=== PATIENT | female | born 1960 | race African-American/Black ===

== ENCOUNTER 2018-10-21 23:09 | Emergency (ER) | payer SELFPAY ==
[~2018-10-21] VITALS: Ht 182.9 cm; Wt 115.5 kg
[2018-10-21] MEDS ORDERED: MULT1CAP32 PO (23:33)
[2018-10-21] MEDS ORDERED: FERR134T2 PO (23:33)
[2018-10-22] MEDS ORDERED: SILVER NITRATE APPLICATOR 1 EA STICK TP ONE ×3 (00:47→02:24)
[2018-10-22] MEDS ORDERED: CloNIDine HCL 0.2 MG TABLET PO ONE (01:30)
[2018-10-22 01:54] LABS: BASOPHILS % (AUTO) 0.7 % (0.0-2.0); EOSINOPHILS % (AUTO) 0.7 % (1.0-6.0); HEMATOCRIT 39.2 % (36-46); HEMOGLOBIN 13.2 g/dL (12.0-16.0); LYMPHOCYTES # (AUTO) 1.4 K/uL (1.0-4.8); LYMPHOCYTES % (AUTO) 17.7 % (22.0-44.0); MEAN CORPUSCULAR HEMOGLOBIN 25.7 pg (26.0-34.0); MEAN CORPUSCULAR HGB CONC 33.6 G/dL (31.0-37.0); MEAN CORPUSCULAR VOLUME 76 fL (80-100); MONOCYTES # (AUTO) 0.6 K/uL (0.1-1.0); NEUTROPHILS # (AUTO) 5.9 K/uL (1.8-7.7); NEUTROPHILS % (AUTO) 72.9 % (40.0-70.0); PLATELET COUNT (AUTO) 169 K/uL (150-450); RED BLOOD CELL COUNT(AUTO) 5.14 MIL/uL (4.00-5.20)
[2018-10-22 02:12] LABS: PROTHROMBIN TIME 10.3 SEC (9.4-11.6)
[2018-10-22 02:35] LABS: PLATELET MORPHOLOGY COMMENT GIANT PLTS PRESENT
[2018-10-22 02:40] VITALS: BP 161/81
== END 2018-10-22 03:33 | disposition home or self-care (01) ==
LOC: EMS 23:11
DX: R04.0 Epistaxis (principal); I10 Essential (primary) hypertension; Z91.018 Allergy to other foods
CPT/HCPCS: 30901